=== PATIENT | female | born 1995 | race Caucasian/White ===

== ENCOUNTER 2017-03-20 04:18 | Emergency (ER) | payer MEDICAID, OTHER ==
[~2017-03-20] VITALS: Ht 170.2 cm; Wt 112.0 kg
[2017-03-20 04:26] VITALS: Ht 170.2 cm; Wt 112.0 kg
[2017-03-20] MEDS ORDERED: KETOROLAC 30 MG INJ IV STA (06:12)
--- NOTE | 2017-03-20 06:26 | ERD ---
ER Documentation Chief Complaint Date/Time DATE: 03/20/17 TIME: 06:19 Chief Complaint rasmussen and htn, pt denies treatment for htn HPI This is a 21 old female who presents to the emergency department today complaining of a headache that started yesterday. Patient states that she has pain in the back of her right eye and the right side of her head and that she feels nauseated.. States that her boyfriend gave her medication for the headache. States that she thinks her blood pressure spiked. States that in November her blood pressure "spiked" one time and then it returned to normal and was told that she did not need medications. States she has had some allergies however denies any fevers or chills, sinus congestion. ROS All systems reviewed and are negative except as per history of present illness. Medications Home Meds Active Scripts Ondansetron Hcl* (Zofran*) 4 Mg Tablet, 4 MG PO Q6H for NAUSEA AND/OR VOMITING, #30 TAB Prov:CARMELINA TORRES PA-C 03/20/17 Acetamin/Butalbital/Caffeine* (Fioricet*) [id number] Tab, 1 TAB PO Q6H Y for PAIN, #30 TAB Prov:CARMELINA TORRES PA-C 03/20/17 PMhx/Soc Medical and Surgical Hx: pt denies Medical Hx, pt denies Surgical Hx Hx Alcohol Use: No Hx Substance Use: No Hx Tobacco Use: No Smoking Status: Never smoker Physical Exam Vitals Vital Signs Date Time Temp Pulse Resp B/P Pulse Ox O2 Delivery O2 Flow Rate FiO2 03/20/17 07:10 86 16 135/99 99 Room Air 03/20/17 04:26 98.3 95 16 150/93 99 Physical Exam Const: Obese, no acute distress Head: Atraumatic Eyes: Normal Conjunctiva. PERRLA. EOM intact ENT: Ears TMs normal. Nose no drainage. Throat no erythema no exudate. Neck: Full range of motion..~ No meningismus. Resp: Clear to auscultation bilaterally Cardio: Regular rate and rhythm, no murmurs Abd: Soft, non tender, non distended. Normal bowel sounds Skin: No petechiae or rashes Neur: Awake and alert. Cranial nerves II through XII intact. No gait ataxia. Psych: Normal Mood and Affect Results 24 hrs Laboratory Tests Test 03/20/17 06:34 Bedside Urine pH (LAB) 7.0 Bedside Urine Protein (LAB) Negative Bedside Urine Glucose (UA) Negative Bedside Urine Ketones (LAB) Negative Bedside Urine Blood Negative Bedside Urine Nitrite (LAB) Negative Bedside Urine Leukocyte Esterase (L Negative Current Medications Medications (Trade) Dose Ordered Sig/Willis Route PRN Reason Start Time Stop Time Status Last Admin Dose Admin Ketorolac Tromethamine (Toradol) 30 mg ONCE STAT IV 03/20/17 06:12 03/20/17 06:15 DC 03/20/17 06:31 Metoclopramide HCl (Reglan) 10 mg ONCE ONCE IV 03/20/17 06:30 03/20/17 06:31 DC 03/20/17 06:31 Diphenhydramine HCl (Benadryl) 25 mg ONCE ONCE IV 03/20/17 06:30 03/20/17 06:31 DC 03/20/17 06:31 Procedures/MDM This is a 21-year-old female who presents the emergency department today complaining of headache that started yesterday with associated pain in the back of her right eye, light sensitivity and nausea.. States that boyfriend gave her Rizatriptan Benzoate. Patient is afebrile and otherwise well-appearing. She is no focal neurologic deficits and no gait ataxia. She is sitting up looking at her phone in the waiting room.. Patient's blood pressure is mildly elevated at 150/93. Do not feel that this requires medical management at this time. I do not feel the patient requires a head CT scan at this time. Low suspicion for acute hemorrhage, mass, abscess, meningitis. Low suspicion for sinusitis. Patient's blood pressure was repeated prior to discharge and her blood pressure was 135/99. Low suspicion for hypertensive urgency or emergency. Patient was given a migraine cocktail of Toradol, Benadryl and Reglan here in the emergency department. Did also obtain a UA and urine test UA is negative for infection Urine test is negative Patient symptoms at this time is consistent with headache versus migraine versus cluster headache. Patient reported feeling significantly better after the migraine cocktail and was asking to go home. States her symptoms had resolved and her pain was down to a 2. Patient was given a prescription for Fioricet and Zofran. At this time the patient is stable for discharge and outpatient management. Patient should follow up with their PCP in the next 1-2 days. They may return to the emergency department sooner for any persistent or worsening of symptoms. Patient understood and agreed with the plan. Departure Diagnosis: Primary Impression: Headache Headache type: unspecified Headache chronicity pattern: unspecified pattern Intractability: not intractable Qualified Code: R51 - Nonintractable headache, unspecified chronicity pattern, unspecified headache type Condition: CARMELINA Castaneda PA-C Mar 20, 2017 06:26
[2017-03-20] MEDS ORDERED: METOCLOPRAMIDE 10 MG INJ IV ONE (06:30)
[2017-03-20] MEDS ORDERED: DIPHENHYDRAMINE 50 MG INJ IV ONE (06:30)
[2017-03-20 06:31] LABS: URINE BLOOD (Dip) POC Negative (NEGATIVE)
[2017-03-20] MEDS ORDERED: ONDA4TAB8 PO (07:09)
[2017-03-20] MEDS ORDERED: FIORICET PO (07:09)
[2017-03-20 07:10] VITALS: BP 135/99; PULSE 86; RESP 16
== END 2017-03-20 07:15 | disposition home or self-care (01) ==
LOC: FTE 04:18
DX: R51 Headache (principal); R11.0 Nausea
CPT/HCPCS: 81003; 96374; 96375; J1200; J1885; J2765; Z7502